=== PATIENT | female | born 1985 | race African-American/Black ===

== ENCOUNTER → 2016-11-06 | Outpatient (CLI) | payer BC ==
--- NOTE | 2016-11-06 10:40 | RADIOLOGY REPORT (SQ) ---
EXAM DESCRIPTION: CHEST PA/LATERAL COMPLETED DATE/TIME: 11/06/2016 9:56 am REASON FOR STUDY: COUGH COMPARISON: None. EXAM PARAMETERS: NUMBER OF VIEWS: two views TECHNIQUE: Digital Frontal and Lateral radiographic views of the chest acquired. RADIATION DOSE: NA LIMITATIONS: none FINDINGS: LUNGS AND PLEURA: No opacities, masses or pneumothorax. No pleural effusion. MEDIASTINUM AND HILAR STRUCTURES: No masses or contour abnormalities. HEART AND VASCULAR STRUCTURES: Heart normal size. No evidence for failure. BONES: No acute findings. HARDWARE: None in the chest. OTHER: No other significant finding. IMPRESSION: NO SIGNIFICANT RADIOGRAPHIC FINDING IN THE CHEST. TECHNICAL DOCUMENTATION: JOB ID: [id number] [employer]- All Rights Reserved
== END ==
LOC: OD 09:43
PROVIDERS: ATTEND Physician Assistant
DX: R05 Cough (principal)
CPT/HCPCS: 71020

== ENCOUNTER 2016-12-16 20:19 | Emergency (ER) | payer OTHER, BC ==
[2016-12-16] MEDS ORDERED: DIPH/PERTUSS(ACELL)/TETANUS VAC/PF 0.5 ML SYR (>=10YO) IM ONE (23:22)
--- NOTE | 2016-12-16 23:23 | ER Document Report ---
ED General - General Chief Complaint: Laceration Stated Complaint: FINGER INJURY Time Seen by Provider: 12/16/16 22:21 Notes: Patient is a 31-year-old female who presents after cutting her right middle finger at work. States this was cut apparently on a metal shelving unit in a freezer. She was having difficulty controlling the bleeding so her work sent her to the emergency department. Her tetanus shot is currently out of date. She denies any additional injuries. She is right-hand dominant. She does note a dull, stinging, constant pain to the affected digit. Nothing improves or worsens that pain. She denies any associated weakness or numbness. TRAVEL OUTSIDE OF THE [place] IN LAST 30 DAYS: No - Related Data Allergies/Adverse Reactions: No Known Allergies Allergy (Verified 11/10/13 11:05) Past Medical History - General Information source: Patient - Social History Smoking Status: Never Smoker Frequency of alcohol use: None Drug Abuse: None Lives with: Spouse/Significant other Family History: Reviewed & Not Pertinent Patient has suicidal ideation: No Patient has homicidal ideation: No - Past Medical History Cardiac Medical History: Denies: Hx Atrial Fibrillation, Hx Congestive Heart Failure, Hx Coronary Artery Disease, Hx Heart Attack, Hx Hypercholesterolemia, Hx Hypertension, Hx Peripheral Vascular Disease, Hx Pulmonary Embolism, Hx Heart Murmur Pulmonary Medical History: Denies: Hx Asthma, Hx Bronchitis, Hx COPD, Hx Pneumonia, Hx Respiratory Failure, Hx Sleep Apnea, Hx Tuberculosis Neurological Medical History: Denies: Hx Cerebrovascular Accident, Hx Seizures Endocrine Medical History: Denies: Hx Graves' Disease, Hx Hyperthyroidism, Hx Hypothyroidism Renal/ Medical History: Reports: Hx Ovarian Cysts. Denies: Hx End Stage Renal Disease, Hx Kidney Stones, Hx Peritoneal Dialysis, Hx Pelvic Inflammatory Disease Malignancy Medical History: Denies: Hx Breast Cancer, Hx Cervical Cancer, Hx Leukemia, Hx Lung Cancer, Hx Ovarian Cancer GI Medical History: Reports: Hx Gastroesophageal Reflux Disease, Hx Hiatal Hernia - hiatal & umbilical hernia . Denies: Hx Crohn's Disease, Hx Irritable Bowel, Hx Liver Failure, Hx Ulcer Musculoskeltal Medical History: Denies Hx Arthritis, Denies Hx Fibromyalgia, Denies Hx Multiple Sclerosis, Denies Hx Muscular Dystrophy Psychiatric Medical History: Reports: Hx Depression Denies: Hx Bipolar Disorder, Hx Dementia, Hx Post Traumatic Stress Disorder, Hx Schizophrenia Traumatic Medical History: Denies: Hx Fractures Infectious Medical History: Denies: Hx HIV Past Surgical History: Reports: Hx Section, Hx Herniorrhaphy, Hx Tubal Ligation. Denies: Hx Appendectomy, Hx Bowel Surgery, Hx Cholecystectomy, Hx Colostomy, Hx Coronary Artery Bypass Graft, Hx Gastric Bypass Surgery, Hx Hysterectomy, Hx Mastectomy, Hx Pacemaker, Hx Tonsillectomy - Immunizations Hx Diphtheria, Pertussis, Tetanus Vaccination: No Review of Systems - Review of Systems Notes: Constitutional: Negative for fever. Eyes: Negative for visual changes. ENT: Negative for facial injury Cardiovascular: Negative for chest injury. Respiratory: Negative for shortness of breath. Gastrointestinal: Negative for abdominal injury. Genitourinary: Negative for genital injury Musculoskeletal: Negative for back injury. Skin: Positive for laceration/abrasions. Neurological: Negative for head injury. Physical Exam - Vital signs Vitals: Temp Pulse Resp BP Pulse Ox 98.4 F 75 18 125/63 100 12/16/16 20:41 12/16/16 20:41 12/16/16 20:41 12/16/16 20:41 12/16/16 20:41 Interpretation: Normal Notes: PHYSICAL EXAMINATION: GENERAL: Well-appearing, well-nourished and in no acute distress. HEAD: Atraumatic, normocephalic. EYES: sclera anicteric, conjunctiva are normal. ENT: Moist mucous membranes. NECK: Normal range of motion LUNGS: Normal work of breathing HEART: 2+ radial pulses bilaterally EXTREMITIES: no pitting or edema. No cyanosis. NEUROLOGICAL: No focal neurological deficits. Moves all extremities spontaneously and on command. PSYCH: Normal mood, normal affect. SKIN: Warm, Dry, normal turgor, there is a superficial flap type laceration over the volar pad of the right middle finger Course - Re-evaluation Re-evalutation: 12/16/16 23:23 Patient presents with a superficial laceration over the volar pad of her right middle finger. She is right-hand dominant. No evidence of tendon injury. No evidence of foreign body on exam. No indication for x-ray imaging. No additional injuries. Wound is been cleaned and dressed. Tetanus was updated. At this time will discharge with return precautions and follow-up recommendations. Verbal discharge instructions given a the bedside and opportunity for questions given. Medication warnings reviewed. Patient is in agreement with this plan and has verbalized understanding of return precautions. - Vital Signs Vital signs: Temp Pulse Resp BP Pulse Ox 98.4 F 74 18 118/54 L 99 12/16/16 20:41 12/16/16 23:51 12/16/16 23:51 12/16/16 23:51 12/16/16 23:51 Discharge - Discharge Clinical Impression: Laceration of right middle finger Qualifiers: Encounter type: initial encounter Damage to nail status: without damage Foreign body presence: without foreign body Qualified Code(s): S61.212A - Laceration without foreign body of right middle finger without damage to nail, initial encounter Condition: Good Disposition: HOME, SELF-CARE Additional Instructions: Return immediately if you develop spreading redness around the wound, pus from the wound, worsening pain, or a fever of >100.4. Keep the area clean and dry. Wash gently with soap and water twice daily and cover with antibiotic ointment. Forms: Return to Work Referrals: LEONA PATRICK DO [Primary Care Provider] - Follow up as needed
[2016-12-16 23:52] VITALS: BP 118/54
== END 2016-12-16 23:51 | disposition home or self-care (01) ==
LOC: ER 20:19
DX: S61.212A Laceration without foreign body of right middle finger without damage to nail, initial encounter (principal); W45.8XXA Other foreign body or object entering through skin, initial encounter
CPT/HCPCS: 90715; 99282

== ENCOUNTER → 2019-01-17 | Day surgery (SDC) | payer BC, OTHER ==
[~2019-01-17] MED LIST: BUPIVACAINE HCL 0.5 % INJ/PF 30 ML SDV ONE; METHYLPREDNISOLONE ACETATE INJ 80 MG/1 ML VIAL ONE
--- NOTE | 2019-01-17 15:26 | RADIOLOGY REPORT (SQ) ---
EXAM DESCRIPTION: FLUORO/NEEDLE PLACEMENT; INJECT/ASPIR HIP/SHLDR/KNEE COMPLETED DATE/TIME: 01/17/2019 1:58 pm REASON FOR STUDY: M16.12 UNILATERAL PRIMARY OSTEOARTHRITIS, LEFT HIP M16.12 UNILATERAL PRIMARY OSTE OARTHRITIS, LEFT HIP COMPARISON: None. FLUOROSCOPY TIME: 14 seconds 2 images saved to PACS. LIMITATIONS: None. PROCEDURE: SITE OF INJECTION: Left hip LOCALIZING CONTRAST TYPE AND DOSE: 1 mL Omnipaque MEDICATION TYPE AND DOSE: 80 mg Depo-Medrol, 5 mL 0.5% bupivacaine Using local anesthesia and sterile technique with fluoroscopic guidance, the needle was advanced into the joint. Iodinated contrast was injected to verify intraarticular placement. This was followed by therapeutic injection of the indicated medications. The needle was removed. There were no immediat e complications. Preprocedure pain level: 3/5. Postprocedure pain level: 0/5. IMPRESSION: THERAPEUTIC INJECTION OF THE LEFT HIP JOINT ABOVE. COMMENT: Patient medication list reviewed: Yes- Quality ID# [id number]:Eligible professional attests to doc umenting in the medical record they obtained, updated, or reviewed the patient's current medications. . Quality ID 145: Final reports for procedures using fluoroscopy that document radiation exposure [place], or exposure time and number of fluorographic images (if radiation exposure indices are not avail able) TECHNICAL DOCUMENTATION: JOB ID: [id number] [employer]- All Rights Reserved Reading location - IP/workstation name: [email or web address]
--- NOTE | 2019-01-17 15:26 | RADIOLOGY REPORT (SQ) ---
EXAM DESCRIPTION: FLUORO/NEEDLE PLACEMENT; INJECT/ASPIR HIP/SHLDR/KNEE COMPLETED DATE/TIME: 01/17/2019 1:58 pm REASON FOR STUDY: M16.12 UNILATERAL PRIMARY OSTEOARTHRITIS, LEFT HIP M16.12 UNILATERAL PRIMARY OSTE OARTHRITIS, LEFT HIP COMPARISON: None. FLUOROSCOPY TIME: 14 seconds 2 images saved to PACS. LIMITATIONS: None. PROCEDURE: SITE OF INJECTION: Left hip LOCALIZING CONTRAST TYPE AND DOSE: 1 mL Omnipaque MEDICATION TYPE AND DOSE: 80 mg Depo-Medrol, 5 mL 0.5% bupivacaine Using local anesthesia and sterile technique with fluoroscopic guidance, the needle was advanced into the joint. Iodinated contrast was injected to verify intraarticular placement. This was followed by therapeutic injection of the indicated medications. The needle was removed. There were no immediat e complications. Preprocedure pain level: 3/5. Postprocedure pain level: 0/5. IMPRESSION: THERAPEUTIC INJECTION OF THE LEFT HIP JOINT ABOVE. COMMENT: Patient medication list reviewed: Yes- Quality ID# [id number]:Eligible professional attests to doc umenting in the medical record they obtained, updated, or reviewed the patient's current medications. . Quality ID 145: Final reports for procedures using fluoroscopy that document radiation exposure [place], or exposure time and number of fluorographic images (if radiation exposure indices are not avail able) TECHNICAL DOCUMENTATION: JOB ID: [id number] [employer]- All Rights Reserved Reading location - IP/workstation name: [email or web address]
== END ==
LOC: RAD 12:51
PROVIDERS: ATTEND Orthopaedic Surgery
DX: M16.12 Unilateral primary osteoarthritis, left hip (principal)
CPT/HCPCS: 20610; 77002; J3490; J1040

== ENCOUNTER → 2019-02-22 | Outpatient (CLI) | payer OTHER ==
--- NOTE | 2019-02-22 10:02 | WOMENS IMAGING REPORT ---
EXAM DESCRIPTION: BILAT DIAGNOSTIC MAMMO W/CAD; U/S BREAST UNILAT LIMITED COMPLETED DATE/TIME: 02/22/2019 8:38 am; 02/22/2019 9:32 am REASON FOR STUDY: N64.4 BREAST PAIN; RT BREAST N64.4; LT BREAST NODULE COMPARISON: None. EXAM PARAMETERS: Standard craniocaudal and mediolateral oblique views of each breast recorded using digital acquisition. True lateral and cone compression views left breast. Read with the assistance of CAD: .[facility] - [employer] Pathological Technician Version 9.2 LIMITATIONS: None. FINDINGS: RIGHT BREAST MASSES: No suspicious masses. CALCIFICATIONS: No new or suspicious calcifications. ARCHITECTURAL DISTORTION: None. ASYMMETRY: None noted. OTHER: No other significant findings. LEFT BREAST MASSES: No suspicious masses. CALCIFICATIONS: No new or suspicious calcifications. ARCHITECTURAL DISTORTION: None. ASYMMETRY: Focal asymmetry upper outer quadrant middle 3rd. OTHER: No other significant finding. Ultrasound left breast demonstrates cluster of cysts in the upper outer quadrant. Ultrasound right breast was normal. IMPRESSION: No evidence of malignancy. BREAST DENSITY: b. There are scattered areas of fibroglandular density. BIRAD: ASSESSMENT: 2 Benign findings. RECOMMENDATION: RECOMMENDED FOLLOW UP: Birads 1 or 2: The patient should resume routine screening . SPECIFIC INTERVENTION/IMAGING/CONSULTATION RECOMMENDED:No additional intervention/ imaging/consultati on needed at this time. COMMUNICATION:The imaging findings were not discussed with the patient. Her referring provider has be en notified of the findings. COMMENT: The patient has been notified of the results by letter per SA requirements. Additional no tification policies are in place for contacting patient with suspicious or incomplete findings. Quality ID #225: The [employer] recommends an annual screening mammogram for women aged 40 years or over. This facility utilizes a reminder system to ensure that all patients receive reminder letters, and/or direct phone calls for appointments. This includes reminders for routine scr eening mammograms, diagnostic mammograms, or other Breast Imaging Interventions when appropriate. Th is patient will be placed in the appropriate reminder system. TECHNICAL DOCUMENTATION: FINDING NUMBER: (1) ASSESSMENT: (1) JOB ID: [id number] [employer]- All Rights Reserved Reading location - IP/workstation name: [email or web address]
--- NOTE | 2019-02-22 10:02 | WOMENS IMAGING REPORT ---
EXAM DESCRIPTION: BILAT DIAGNOSTIC MAMMO W/CAD; U/S BREAST UNILAT LIMITED COMPLETED DATE/TIME: 02/22/2019 8:38 am; 02/22/2019 9:32 am REASON FOR STUDY: N64.4 BREAST PAIN; RT BREAST N64.4; LT BREAST NODULE COMPARISON: None. EXAM PARAMETERS: Standard craniocaudal and mediolateral oblique views of each breast recorded using digital acquisition. True lateral and cone compression views left breast. Read with the assistance of CAD: .[facility] - [employer]elry Consultant Version 9.2 LIMITATIONS: None. FINDINGS: RIGHT BREAST MASSES: No suspicious masses. CALCIFICATIONS: No new or suspicious calcifications. ARCHITECTURAL DISTORTION: None. ASYMMETRY: None noted. OTHER: No other significant findings. LEFT BREAST MASSES: No suspicious masses. CALCIFICATIONS: No new or suspicious calcifications. ARCHITECTURAL DISTORTION: None. ASYMMETRY: Focal asymmetry upper outer quadrant middle 3rd. OTHER: No other significant finding. Ultrasound left breast demonstrates cluster of cysts in the upper outer quadrant. Ultrasound right breast was normal. IMPRESSION: No evidence of malignancy. BREAST DENSITY: b. There are scattered areas of fibroglandular density. BIRAD: ASSESSMENT: 2 Benign findings. RECOMMENDATION: RECOMMENDED FOLLOW UP: Birads 1 or 2: The patient should resume routine screening . SPECIFIC INTERVENTION/IMAGING/CONSULTATION RECOMMENDED:No additional intervention/ imaging/consultati on needed at this time. COMMUNICATION:The imaging findings were not discussed with the patient. Her referring provider has be en notified of the findings. COMMENT: The patient has been notified of the results by letter per SA requirements. Additional no tification policies are in place for contacting patient with suspicious or incomplete findings. Quality ID #225: The [employer] recommends an annual screening mammogram for women aged 40 years or over. This facility utilizes a reminder system to ensure that all patients receive reminder letters, and/or direct phone calls for appointments. This includes reminders for routine scr eening mammograms, diagnostic mammograms, or other Breast Imaging Interventions when appropriate. Th is patient will be placed in the appropriate reminder system. TECHNICAL DOCUMENTATION: FINDING NUMBER: (1) ASSESSMENT: (1) JOB ID: [id number] [employer]- All Rights Reserved Reading location - IP/workstation name: [email or web address]
--- NOTE | 2019-02-22 10:02 | WOMENS IMAGING REPORT ---
EXAM DESCRIPTION: BILAT DIAGNOSTIC MAMMO W/CAD; U/S BREAST UNILAT LIMITED COMPLETED DATE/TIME: 02/22/2019 8:38 am; 02/22/2019 9:32 am REASON FOR STUDY: N64.4 BREAST PAIN; RT BREAST N64.4; LT BREAST NODULE COMPARISON: None. EXAM PARAMETERS: Standard craniocaudal and mediolateral oblique views of each breast recorded using digital acquisition. True lateral and cone compression views left breast. Read with the assistance of CAD: .[facility] - [employer] Superintendent Service Version 9.2 LIMITATIONS: None. FINDINGS: RIGHT BREAST MASSES: No suspicious masses. CALCIFICATIONS: No new or suspicious calcifications. ARCHITECTURAL DISTORTION: None. ASYMMETRY: None noted. OTHER: No other significant findings. LEFT BREAST MASSES: No suspicious masses. CALCIFICATIONS: No new or suspicious calcifications. ARCHITECTURAL DISTORTION: None. ASYMMETRY: Focal asymmetry upper outer quadrant middle 3rd. OTHER: No other significant finding. Ultrasound left breast demonstrates cluster of cysts in the upper outer quadrant. Ultrasound right breast was normal. IMPRESSION: No evidence of malignancy. BREAST DENSITY: b. There are scattered areas of fibroglandular density. BIRAD: ASSESSMENT: 2 Benign findings. RECOMMENDATION: RECOMMENDED FOLLOW UP: Birads 1 or 2: The patient should resume routine screening . SPECIFIC INTERVENTION/IMAGING/CONSULTATION RECOMMENDED:No additional intervention/ imaging/consultati on needed at this time. COMMUNICATION:The imaging findings were not discussed with the patient. Her referring provider has be en notified of the findings. COMMENT: The patient has been notified of the results by letter per SA requirements. Additional no tification policies are in place for contacting patient with suspicious or incomplete findings. Quality ID #225: The [employer] recommends an annual screening mammogram for women aged 40 years or over. This facility utilizes a reminder system to ensure that all patients receive reminder letters, and/or direct phone calls for appointments. This includes reminders for routine scr eening mammograms, diagnostic mammograms, or other Breast Imaging Interventions when appropriate. Th is patient will be placed in the appropriate reminder system. TECHNICAL DOCUMENTATION: FINDING NUMBER: (1) ASSESSMENT: (1) JOB ID: [id number] [employer]- All Rights Reserved Reading location - IP/workstation name: [email or web address]
== END ==
LOC: WI 08:15
PROVIDERS: ATTEND Family Medicine Geriatric Medicine
DX: N64.4 Mastodynia (principal)
CPT/HCPCS: 76642; 77066